=== PATIENT | female | born 1980 | race Caucasian/White ===

== ENCOUNTER 2018-10-07 10:17 | Emergency (ER) | payer MEDICAID, SELFPAY ==
[2018-10-07 10:32] VITALS: BP 125/81; PULSE 24; RESP 18; TEMP 36.8; O2SAT 100; BMI 20.5
== END 2018-10-07 13:28 | disposition left against medical advice (07) ==
PROVIDERS: Family Provider Family Medicine; PCP Family Medicine
DX: R22.0 Localized swelling, mass and lump, head (principal)
CPT/HCPCS: 99281